=== PATIENT | male | born 1975 | race Caucasian/White ===

== ENCOUNTER 2017-05-09 08:30 | Day surgery (SDC) | payer OTHER ==
[~2017-05-09] VITALS: Ht 182.9 cm; Wt 80.0 kg
[~2017-05-09 08:30] MED LIST: ALBU3IS; ALBU90OI61 INH; ALPR.5 PO; Crutch1 EACH TOP; FLUT1DIS5 INH; OXYC10ER; OXYC5 PO; Percocet 5-3251 EACH PO; TRAM50 PO
== END 2017-05-09 12:39 | disposition home or self-care (01) ==
LOC: ORSCSDS 08:30
PROVIDERS: Podiatrist Foot & Ankle Surgery
PROC: 0JBQ0ZZ Excision of Right Foot Subcutaneous Tissue and Fascia, Open Approach (ICD-10-PCS; principal; 2017-05-09 09:45)
DX: T81.89XA Other complications of procedures, not elsewhere classified, initial encounter (principal); S82.871D Displaced pilon fracture of right tibia, subsequent encounter for closed fracture with routine healing; J45.909 Unspecified asthma, uncomplicated; Z79.899 Other long term (current) drug therapy; F17.210 Nicotine dependence, cigarettes, uncomplicated
CPT/HCPCS: J1100; J2405; J3010; J7120

== ENCOUNTER 2017-05-14 00:55 | Day surgery (SDC) | payer OTHER ==
[2017-05-14] MEDS ORDERED: OXYC5 (14:54)
== END 2017-05-14 15:26 | disposition home or self-care (01) ==
LOC: ATC 00:55
DX: S82.871D Displaced pilon fracture of right tibia, subsequent encounter for closed fracture with routine healing (principal); T81.89XD Other complications of procedures, not elsewhere classified, subsequent encounter
CPT/HCPCS: 99213

== ENCOUNTER 2017-05-16 00:58 | Day surgery (SDC) | payer OTHER ==
[~2017-05-16 00:58] MED LIST changes: +OXYC5
[2017-05-16] MEDS ORDERED: Bactrim 400-801 EACH PO (14:43)
== END 2017-05-16 15:05 | disposition home or self-care (01) ==
LOC: ATC 00:58
DX: S82.871D Displaced pilon fracture of right tibia, subsequent encounter for closed fracture with routine healing (principal); T81.89XD Other complications of procedures, not elsewhere classified, subsequent encounter
CPT/HCPCS: 99211

== ENCOUNTER 2017-05-23 00:39 | Day surgery (SDC) | payer OTHER ==
[~2017-05-23 00:39] MED LIST changes: +Bactrim 400-801 EACH PO
== END 2017-05-23 11:30 | disposition home or self-care (01) ==
LOC: ATC 00:39
DX: Z48.00 Encounter for change or removal of nonsurgical wound dressing (principal); S82.871D Displaced pilon fracture of right tibia, subsequent encounter for closed fracture with routine healing; T81.89XD Other complications of procedures, not elsewhere classified, subsequent encounter
CPT/HCPCS: 99212

== ENCOUNTER 2017-05-28 00:35 | Day surgery (SDC) | payer OTHER | END 2017-05-28 10:47 | disposition home or self-care (01) | LOC: ATC 00:35 | DX: T81.89XD Other complications of procedures, not elsewhere classified, subsequent encounter (principal); J45.909 Unspecified asthma, uncomplicated; S82.871D Displaced pilon fracture of right tibia, subsequent encounter for closed fracture with routine healing; F31.9 Bipolar disorder, unspecified; F17.210 Nicotine dependence, cigarettes, uncomplicated | CPT/HCPCS: 99211 ==

== ENCOUNTER 2017-05-30 00:48 | Day surgery (SDC) | payer OTHER | END 2017-05-30 10:26 | disposition home or self-care (01) | LOC: ATC 00:48 | DX: S82.871D Displaced pilon fracture of right tibia, subsequent encounter for closed fracture with routine healing (principal); T81.89XD Other complications of procedures, not elsewhere classified, subsequent encounter; J45.909 Unspecified asthma, uncomplicated; F41.9 Anxiety disorder, unspecified | CPT/HCPCS: 99211 ==

== ENCOUNTER 2017-06-06 01:06 | Day surgery (SDC) | payer OTHER | END 2017-06-06 15:56 | disposition home or self-care (01) | LOC: ATC 01:06 | DX: S82.871D Displaced pilon fracture of right tibia, subsequent encounter for closed fracture with routine healing (principal); T81.89XD Other complications of procedures, not elsewhere classified, subsequent encounter; J45.909 Unspecified asthma, uncomplicated; F17.210 Nicotine dependence, cigarettes, uncomplicated | CPT/HCPCS: 99211 ==

== ENCOUNTER 2017-06-06 16:33 | Emergency (ER) | payer OTHER ==
[~2017-06-06] VITALS: Ht 182.9 cm; Wt 81.7 kg
== END 2017-06-06 17:52 | disposition left against medical advice (07) ==
LOC: ER 16:33
DX: Z53.21 Procedure and treatment not carried out due to patient leaving prior to being seen by health care provider (principal)

== ENCOUNTER 2017-06-11 09:13 | Day surgery (SDC) | payer OTHER | END 2017-06-11 22:39 | disposition home or self-care (01) | LOC: WOUND 09:13 | DX: Z48.01 Encounter for change or removal of surgical wound dressing (principal); T81.89XD Other complications of procedures, not elsewhere classified, subsequent encounter; S82.871D Displaced pilon fracture of right tibia, subsequent encounter for closed fracture with routine healing; Z87.891 Personal history of nicotine dependence | CPT/HCPCS: G0463 ==

== ENCOUNTER 2017-06-13 00:09 | Day surgery (SDC) | payer OTHER | END 2017-06-13 23:10 | disposition home or self-care (01) | LOC: WOUND 00:09 | PROC: 2W1QX6Z Compression of Right Lower Leg using Pressure Dressing (ICD-10-PCS; principal; 2017-06-13) | DX: T81.89XD Other complications of procedures, not elsewhere classified, subsequent encounter (principal); S82.871D Displaced pilon fracture of right tibia, subsequent encounter for closed fracture with routine healing ==

== ENCOUNTER 2017-06-16 15:13 | Day surgery (SDC) | payer OTHER | END 2017-06-16 23:00 | disposition home or self-care (01) | LOC: WOUND 15:13 | DX: Z48.00 Encounter for change or removal of nonsurgical wound dressing (principal); T81.89XA Other complications of procedures, not elsewhere classified, initial encounter; S82.871D Displaced pilon fracture of right tibia, subsequent encounter for closed fracture with routine healing | CPT/HCPCS: G0463 ==

== ENCOUNTER 2017-06-20 10:08 | Day surgery (SDC) | payer OTHER | END 2017-06-20 23:00 | disposition home or self-care (01) | LOC: WOUND 10:08 | PROC: 2W1QX6Z Compression of Right Lower Leg using Pressure Dressing (ICD-10-PCS; principal; 2017-06-20) | DX: T81.89XA Other complications of procedures, not elsewhere classified, initial encounter (principal); S82.871D Displaced pilon fracture of right tibia, subsequent encounter for closed fracture with routine healing; Z87.891 Personal history of nicotine dependence | CPT/HCPCS: G0463 ==

== ENCOUNTER 2017-07-04 09:58 | Day surgery (SDC) | payer OTHER | END 2017-07-04 15:55 | disposition home or self-care (01) | LOC: WOUND 09:58 | PROC: 2W0QX6Z Change Pressure Dressing on Right Lower Leg (ICD-10-PCS; principal; 2017-07-04) | DX: Z48.01 Encounter for change or removal of surgical wound dressing (principal); T81.31XD Disruption of external operation (surgical) wound, not elsewhere classified, subsequent encounter; L97.312 Non-pressure chronic ulcer of right ankle with fat layer exposed; S82.871D Displaced pilon fracture of right tibia, subsequent encounter for closed fracture with routine healing; Z87.891 Personal history of nicotine dependence | CPT/HCPCS: G0463 ==

== ENCOUNTER 2017-07-09 01:40 | Day surgery (SDC) | payer OTHER | END 2017-07-09 23:06 | disposition home or self-care (01) | LOC: WOUND 01:40 | PROC: 2W0QX6Z Change Pressure Dressing on Right Lower Leg (ICD-10-PCS; principal; 2017-07-09) | DX: Z48.01 Encounter for change or removal of surgical wound dressing (principal); T81.31XD Disruption of external operation (surgical) wound, not elsewhere classified, subsequent encounter; L97.312 Non-pressure chronic ulcer of right ankle with fat layer exposed; Z87.891 Personal history of nicotine dependence | CPT/HCPCS: G0463 ==

== ENCOUNTER 2017-07-16 11:00 | Day surgery (SDC) | payer OTHER | END 2017-07-16 14:16 | disposition home or self-care (01) | LOC: WOUND 11:00 | PROC: 2W1QX6Z Compression of Right Lower Leg using Pressure Dressing (ICD-10-PCS; principal; 2017-07-16) | DX: T81.89XA Other complications of procedures, not elsewhere classified, initial encounter (principal); Z87.891 Personal history of nicotine dependence; S82.871A Displaced pilon fracture of right tibia, initial encounter for closed fracture ==

== ENCOUNTER 2018-10-12 17:55 | Emergency (ER) | payer OTHER ==
[~2018-10-12] VITALS: Ht 182.9 cm; Wt 88.5 kg
[~2018-10-12 17:55] MED LIST changes: +Vibramycin100 MG PO
== END 2018-10-12 19:24 | disposition home or self-care (01) ==
LOC: ER 17:55
DX: S61.412A Laceration without foreign body of left hand, initial encounter (principal); W26.8XXA Contact with other sharp object(s), not elsewhere classified, initial encounter; Z88.0 Allergy status to penicillin; Z91.048 Other nonmedicinal substance allergy status; Z79.899 Other long term (current) drug therapy; J45.909 Unspecified asthma, uncomplicated; F41.9 Anxiety disorder, unspecified; Z87.891 Personal history of nicotine dependence
CPT/HCPCS: 12002; 99282-25

== ENCOUNTER 2020-04-22 18:15 | Emergency (ER) | payer OTHER ==
[~2020-04-22] VITALS: Ht 182.9 cm; Wt 83.9 kg
[2020-04-22 19:40] LABS: BASOPHILS ABSOLUTE AUTO 0.07 K/mm3 (0.00-0.23); BASOPHILS PERCENT AUTO 1 % (0-2); EOSINOPHILS ABSOLUTE AUTO 0.45 K/mm3 (0.00-0.68); EOSINOPHILS PERCENT AUTO 6 % (0-6); Hematocrit 47.6 % (37.0-53.0); Hemoglobin 15.2 g/dL (13.5-17.5); IMMATURE GRAN ABSOLUTE AUTO 0.02 K/mm3 (0.00-0.10); IMMATURE GRAN PERCENT AUTO 0 % (0-1); LYMPHOCYTES ABSOLUTE AUTO 1.84 K/mm3 (0.84-5.20); LYMPHOCYTES PERCENT AUTO 25 % (21-46); MONOCYTES ABSOLUTE AUTO 0.38 K/mm3 (0.16-1.47); MONOCYTES PERCENT AUTO 5 % (4-13); Mean Corpuscular HGB 28.2 pg (26.0-34.0); Mean Corpuscular HGB Conc 31.9 g/dL (31.5-36.5); Mean Corpuscular Volume 88 fL (80-100); Mean Platelet Volume 9.8 fL (9.1-12.4); NEUTROPHILS ABSOLUTE AUTO 4.59 K/mm3 (1.96-9.15); NEUTROPHILS PERCENT AUTO 62 % (41-73); Platelet Count 343 K/mm3 (150-400); RDW Coefficient Variation 13.6 % (11.7-14.2); RDW Standard Deviation 44.6 fL (35.1-46.3); Red Blood Cell Count 5.39 M/mm3 (4.30-5.90); White Blood Cell Count 7.35 K/mm3 (4.00-11.30)
[2020-04-22 19:58] LABS: Alanine Aminotransfer (ALT/SGP 15 U/L (12-78); Alk Phos 84 U/L (50-136); Anion Gap 6 mmol/L (6-16); Aspartate Aminotrans (AST/SGOT 13 U/L (12-37); Bilirubin, Total 0.3 mg/dL (0.1-1.0); Blood Urea Nitrogen 16 mg/dL (8-24); CO2, Blood 25 mmol/L (21-32); Calcium, Blood 9.1 mg/dL (8.5-10.1); Chloride, Blood 109 mmol/L (98-108); Creatinine, Blood 0.89 mg/dL (0.60-1.20); Globulin, Blood 3.9 g/dL (2.2-4.0); Glomerular Filtration Rate >60 (60-); Glucose, Blood 103 mg/dL (70-99); Potassium, Blood 5.2 mmol/L (3.5-5.5); Sodium, Blood 140 mmol/L (136-145); Total Protein, Blood 7.9 g/dL (6.4-8.2)
[2020-04-22] MEDS ORDERED: Ventolin5 MG/1 ML INH (20:55)
[2020-04-22] MEDS ORDERED: PRED20 PO (20:55)
== END 2020-04-22 21:19 | disposition home or self-care (01) ==
LOC: ER 18:15
PROVIDERS: Physician Assistant
DX: J45.901 Unspecified asthma with (acute) exacerbation (principal); F17.200 Nicotine dependence, unspecified, uncomplicated; Z79.899 Other long term (current) drug therapy; Z88.0 Allergy status to penicillin; Z91.09 Other allergy status, other than to drugs and biological substances
CPT/HCPCS: 71045; 80053; 85025; 93005; 93010; 94640; 96374; 99285-25; A9270; J2930

== ENCOUNTER 2020-05-02 10:30 | Emergency (ER) | payer OTHER ==
[~2020-05-02] VITALS: Ht 182.9 cm; Wt 86.2 kg
[~2020-05-02 10:30] MED LIST changes: +PRED20 PO; +Ventolin5 MG/1 ML INH
[2020-05-02] MEDS ORDERED: ALBU2.5V5 NEB (13:15)
[2020-05-02] MEDS ORDERED: ALBU90OI INH (13:15)
[2020-05-02] MEDS ORDERED: METPRE4DP PO (13:15)
== END 2020-05-02 13:24 | disposition home or self-care (01) ==
LOC: ER 10:30
DX: J45.901 Unspecified asthma with (acute) exacerbation (principal); F17.210 Nicotine dependence, cigarettes, uncomplicated; Z79.899 Other long term (current) drug therapy; Z88.0 Allergy status to penicillin; Z79.52 Long term (current) use of systemic steroids
CPT/HCPCS: 71045; 93005; 93010; 94644; 99285-25

== ENCOUNTER 2021-01-02 20:35 | Emergency (ER) | payer OTHER ==
[~2021-01-02] VITALS: Ht 182.9 cm; Wt 83.9 kg
[~2021-01-02 20:35] MED LIST changes: +ALBU2.5V5 NEB; +ALBU90OI INH; +METPRE4DP PO
[2021-01-02] MEDS ORDERED: ALBU90OI INH (22:18)
== END 2021-01-02 22:38 | disposition home or self-care (01) ==
LOC: ER 20:35
DX: M25.571 Pain in right ankle and joints of right foot (principal); G89.29 Other chronic pain; J45.909 Unspecified asthma, uncomplicated; F41.9 Anxiety disorder, unspecified; Z88.0 Allergy status to penicillin; Z91.048 Other nonmedicinal substance allergy status; Z79.52 Long term (current) use of systemic steroids; Z79.899 Other long term (current) drug therapy
CPT/HCPCS: 73610; 99282-25

== ENCOUNTER 2021-02-24 01:02 | Emergency (ER) | payer OTHER ==
[~2021-02-24] VITALS: Ht 182.9 cm; Wt 90.7 kg
[2021-02-24] MEDS ORDERED: PRED20 PO (03:47)
== END 2021-02-24 03:56 | disposition home or self-care (01) ==
LOC: ER 01:02
DX: J45.901 Unspecified asthma with (acute) exacerbation (principal); Z88.0 Allergy status to penicillin
CPT/HCPCS: 94644; 94645; 99285-25; J3475

== ENCOUNTER 2021-04-01 07:56 | Emergency (ER) | payer OTHER ==
[~2021-04-01] VITALS: Ht 182.9 cm; Wt 83.9 kg
[2021-04-01] MEDS ORDERED: METPRE4DP PO (10:56)
== END 2021-04-01 11:15 | disposition home or self-care (01) ==
LOC: ER 07:56
DX: J45.901 Unspecified asthma with (acute) exacerbation (principal); R06.03 Acute respiratory distress; Z88.0 Allergy status to penicillin
CPT/HCPCS: 71045; 96374; 96375; 99285-25; J2930; J3475

== ENCOUNTER 2021-08-03 04:38 | Emergency (ER) | payer OTHER ==
[~2021-08-03] VITALS: Ht 182.9 cm; Wt 83.9 kg
[2021-08-03] MEDS ORDERED: DELTASONE20 MG PO (06:36)
== END 2021-08-03 07:28 | disposition home or self-care (01) ==
LOC: ER 04:38
DX: J45.901 Unspecified asthma with (acute) exacerbation (principal); Z88.0 Allergy status to penicillin; Z88.8 Allergy status to other drugs, medicaments and biological substances; Z79.899 Other long term (current) drug therapy; Z79.52 Long term (current) use of systemic steroids; F17.200 Nicotine dependence, unspecified, uncomplicated
CPT/HCPCS: 36415; 94644; 94645; 94664; 96365; 96366; 96375; 99285-25; J2930; J3475

== ENCOUNTER 2021-09-18 02:35 | Emergency (ER) | payer OTHER ==
[~2021-09-18] VITALS: Ht 182.9 cm; Wt 86.2 kg
[~2021-09-18 02:35] MED LIST changes: +DELTASONE20 MG PO
[2021-09-18 04:38] LABS: Influenza A, PCR NEGATIVE (NEGATIVE); Influenza B, PCR NEGATIVE (NEGATIVE); Resp Syncytial Virus, PCR NEGATIVE (NEGATIVE); SARS-Cov-2 (COVID-19) PCR, MMC NEGATIVE (NEGATIVE)
[2021-09-18] MEDS ORDERED: Prednisone20 MG PO (04:43)
[2021-09-18] MEDS ORDERED: ALBU90OI INH (04:43)
[2021-09-18] MEDS ORDERED: ALBU2.5V5 INH (04:48)
== END 2021-09-18 05:35 | disposition home or self-care (01) ==
LOC: ER 02:35
PROVIDERS: Emergency Medicine
DX: J45.901 Unspecified asthma with (acute) exacerbation (principal); F17.200 Nicotine dependence, unspecified, uncomplicated; Z20.822 Contact with and (suspected) exposure to COVID-19; Z79.899 Other long term (current) drug therapy; Z79.52 Long term (current) use of systemic steroids; Z88.0 Allergy status to penicillin; Z91.09 Other allergy status, other than to drugs and biological substances
CPT/HCPCS: 0241U; 71045; 94644; 94664; J3475

== ENCOUNTER 2022-02-27 19:26 | Observation (INO) | payer OTHER ==
[~2022-02-27] VITALS: Ht 180.3 cm; Wt 93.4 kg
[~2022-02-27 19:26] MED LIST changes: +ALBU2.5V5 INH; +Prednisone20 MG PO
[2022-02-27 19:46] LABS: Hematocrit 47.4 % (37.0-53.0); Hemoglobin 15.5 g/dL (13.5-17.5); Mean Corpuscular HGB 29.5 pg (26.0-34.0); Mean Corpuscular HGB Conc 32.7 g/dL (31.5-36.5); Mean Corpuscular Volume 90 fL (80-100); Mean Platelet Volume 9.8 fL (9.1-12.4); Platelet Count 419 K/mm3 (150-400); RDW Coefficient Variation 14.6 % (11.7-14.2); RDW Standard Deviation 48.8 fL (35.1-46.3); Red Blood Cell Count 5.26 M/mm3 (4.30-5.90); White Blood Cell Count 13.95 K/mm3 (4.00-11.30)
[2022-02-27 19:47] LABS: PCO2 Arterial 72.4 mmHg (35-45); PO2 Arterial 282 mmHg (80-100); pH Blood Arterial 7.16 (7.35-7.45)
[2022-02-27 20:03] LABS: Albumin, Blood 4.3 g/dL (3.4-5.0); Albumin/Globulin Ratio 1.2 (0.8-1.8); Bilirubin, Total 0.3 mg/dL (0.1-1.0); Bun/Creatinine Ratio 16.8 (12.0-20.0); Creatinine, Blood 1.01 mg/dL (0.60-1.20); Globulin, Blood 3.6 g/dL (2.2-4.0); Potassium, Blood 4.7 mmol/L (3.5-5.5); Total Protein, Blood 7.9 g/dL (6.4-8.2)
[2022-02-27 20:06] LABS: BASOPHILS ABSOLUTE MAN 0.13 K/mm3 (0.00-0.23); BASOPHILS PERCENT MAN 1 % (0-2); EOSINOPHILS ABSOLUTE MAN 0.83 K/mm3 (0.00-0.68); EOSINOPHILS PERCENT MAN 6 % (0-6); LYMPHOCYTES ABSOLUTE MAN 6.13 K/mm3 (0.84-5.20); LYMPHOCYTES PERCENT MAN 44 % (21-46); MONOCYTES ABSOLUTE MAN 1.11 K/mm3 (0.16-1.47); MONOCYTES PERCENT MAN 8 % (4-13); NEUTROPHILS ABSOLUTE MAN 5.71 K/mm3 (1.96-9.15); SEG NEUTROPHILS PERCENT MAN 41 % (41-73); TOTAL CELLS COUNTED 100
[2022-02-27 22:36] LABS: Bicarbonate Venous 23.8 mmol/L (24.0-30.0); PCO2 Venous 42.2 mmHg (38-42); pH Blood Venous 7.38 (7.34-7.37)
[2022-02-27 22:37] LABS: Base Excess Venous -0.5 mmol/L
[2022-02-28 04:16] LABS: BASOPHILS ABSOLUTE AUTO 0.01 K/mm3 (0.00-0.23); BASOPHILS PERCENT AUTO 0 % (0-2); EOSINOPHILS ABSOLUTE AUTO 0.02 K/mm3 (0.00-0.68); EOSINOPHILS PERCENT AUTO 0 % (0-6); Hematocrit 45.1 % (37.0-53.0); Hemoglobin 14.7 g/dL (13.5-17.5); IMMATURE GRAN ABSOLUTE AUTO 0.06 K/mm3 (0.00-0.10); IMMATURE GRAN PERCENT AUTO 1 % (0-1); LYMPHOCYTES ABSOLUTE AUTO 0.61 K/mm3 (0.84-5.20); LYMPHOCYTES PERCENT AUTO 5 % (21-46); MONOCYTES ABSOLUTE AUTO 0.04 K/mm3 (0.16-1.47); MONOCYTES PERCENT AUTO 0 % (4-13); Mean Corpuscular HGB 28.9 pg (26.0-34.0); Mean Corpuscular HGB Conc 32.6 g/dL (31.5-36.5); Mean Corpuscular Volume 89 fL (80-100); Mean Platelet Volume 9.5 fL (9.1-12.4); NEUTROPHILS ABSOLUTE AUTO 11.58 K/mm3 (1.96-9.15); NEUTROPHILS PERCENT AUTO 94 % (41-73); Platelet Count 343 K/mm3 (150-400); RDW Coefficient Variation 14.4 % (11.7-14.2); RDW Standard Deviation 46.6 fL (35.1-46.3); Red Blood Cell Count 5.09 M/mm3 (4.30-5.90); White Blood Cell Count 12.32 K/mm3 (4.00-11.30)
--- NOTE | 2022-02-28 04:53 | NUR ---
ARRIVAL TO [facility]/SHIFT SUMMARY PT ARRIVED TO PCU AT APPROXIMATELY 2130 ON 2L VIA NC WITH BIPAP ON STANDBY, PT ABLE TO STAND AND TRANSFER SELF IND [facility] BED. PT DENIES SOB, RR STABLE, SpO2> 92% 2L VIA NC. PT A&Ox4, CALLS AND COMMUNICATES NEEDS APPROPRIATELY. PT's ONLY HAS HIVES ON INNER ELBOWS, ORDERS TO ADMINISTER BENADRYL AND PEPCID, HIVES IMPROVED. AT APPROXIMATELY 0400 PT SUCCESSFULLY TITRATE DOWN TO RA WITH SpO2> 92% AND PT DENIES SOB. VSS, BP STABLE, SINUS 70's, DENIES CP/PRESSURE. PT ABLE TO REST COMFORTABLY, NO OTHER EVENTS THIS SHIFT. WILL REPORT TO DAY SHIFT RN.
--- NOTE | 2022-02-28 06:31 | NUR ---
THIS RN ADMITTING ANOTHER PT WHEN MARY VAIL FOUND PT RIPPING TELE AND IV's OUT, DEMANDING TO LEAVE. PT IS A&Ox4, VSS, SpO2> 92% RA. MARY VAIL CALLED PHYSICIAN TO UPDATE. PT PROVIDED WITH EDUCATION REGAURDING LEAVING AMA, AMA FORM SIGNED. ALL IV's REMOVED PRIOR TO PT LEAVING ROOM. ALL PT BELONGINGS WITH PT.
== END 2022-02-28 06:30 | disposition left against medical advice (07) ==
LOC: ER 19:26 → PCU 20:37 → ER 20:37 → PCU 21:40
PROVIDERS: Emergency Medicine; Family Medicine; ADMIT Internal Medicine
DX: T78.3XXA Angioneurotic edema, initial encounter (principal); J45.40 Moderate persistent asthma, uncomplicated; F17.210 Nicotine dependence, cigarettes, uncomplicated; Z88.0 Allergy status to penicillin
CPT/HCPCS: 36415; 36600; 71045; 80053; 82803; 85025; 90686; 93005; 93010; 94640; 94644; 94660; 94664; 94762; 96374; 96375; 99285-25; G0008; J1200; J2405; J2930; J3475

== ENCOUNTER 2022-04-25 21:21 | Emergency (ER) | payer OTHER ==
[~2022-04-25] VITALS: Ht 180.3 cm; Wt 91.6 kg
[2022-04-26 02:32] LABS: Influenza A, PCR NEGATIVE (NEGATIVE); Influenza B, PCR NEGATIVE (NEGATIVE); Resp Syncytial Virus, PCR NEGATIVE (NEGATIVE); SARS-Cov-2 (COVID-19) PCR, MMC NEGATIVE (NEGATIVE)
[2022-04-26] MEDS ORDERED: PRED20 PO (02:39)
== END 2022-04-26 02:57 | disposition home or self-care (01) ==
LOC: ER 21:21
PROVIDERS: Student in an Organized Health Care Education/Training Program
DX: J45.51 Severe persistent asthma with (acute) exacerbation (principal); J06.9 Acute upper respiratory infection, unspecified; Z91.013 Allergy to seafood; Z88.0 Allergy status to penicillin; Z91.09 Other allergy status, other than to drugs and biological substances; Z87.891 Personal history of nicotine dependence; Z20.822 Contact with and (suspected) exposure to COVID-19
CPT/HCPCS: 0241U; 71046; 94640; 94664; A9270; J7512

== ENCOUNTER 2022-05-29 12:41 | Day surgery (SDC) | payer OTHER ==
[~2022-05-29] VITALS: Ht 182.9 cm; Wt 93.0 kg
[2022-05-29] MEDS ORDERED: TRELEGY ELLIPT1 EAC1 IH (13:34)
[2022-05-29] MEDS ORDERED: MONT10T (13:37)
[2022-05-29] MEDS ORDERED: OMEP20ER PO (13:37)
[2022-05-29] MEDS ORDERED: DESCOVY 120-151 EACH PO (13:39)
--- NOTE | 2022-05-29 16:02 | NUR ---
05/29/22 1602 Tamara Cochran BULLET GIVEN TO PATIENT PER PATIENT REQUEST AFTER STERILE PROCESSCING.
== END 2022-05-29 15:59 | disposition home or self-care (01) ==
LOC: ORSCSDS 12:41
PROVIDERS: Orthopaedic Surgery
PROC: 0KCC0ZZ Extirpation of Matter from Right Hand Muscle, Open Approach (ICD-10-PCS; principal; 2022-05-29 14:45)
PROC: 01N54ZZ Release Median Nerve, Percutaneous Endoscopic Approach (ICD-10-PCS; principal; 2022-05-29 14:45)
DX: G56.01 Carpal tunnel syndrome, right upper limb (principal); S60.551A Superficial foreign body of right hand, initial encounter; K21.9 Gastro-esophageal reflux disease without esophagitis; F41.9 Anxiety disorder, unspecified; Z87.891 Personal history of nicotine dependence; Z79.899 Other long term (current) drug therapy
CPT/HCPCS: J2250; J2370; J3010; J7120

== ENCOUNTER 2024-04-09 07:52 | Inpatient (IN) | payer OTHER ==
[~2024-04-09] VITALS: Ht 182.9 cm; Wt 78.4 kg
[~2024-04-09 07:52] MED LIST changes: +DESCOVY 120-151 EACH PO; +MONT10T; +OMEP20ER PO; +TRELEGY ELLIPT1 EAC1 IH
[2024-04-09] MEDS ORDERED: Magnesium Sulf 2 GM/Water 50ML 50 ML IV ONE (08:05)
[2024-04-09] MEDS ORDERED: Ipratropium Bromide INH 0.02% 0.5 mg/2.5ML Vial INH SCH ×2 (08:05→10:20)
[2024-04-09] MEDS ORDERED: Albuterol 2.5 MG/3 ML VIAL INH SCH ×2 (08:05→10:15)
[2024-04-09] MEDS ORDERED: MethylPREDNISolone Sod Succ 125 MG Vial IV ONE (08:05)
[2024-04-09 08:08] LABS: Base Excess Venous -0.6 mmol/L; Bicarbonate Venous 22.7 mmol/L (24.0-30.0); PCO2 Venous 50.5 mmHg (38-42); pH Blood Venous 7.31 (7.34-7.37)
[2024-04-09 08:11] LABS: BASOPHILS ABSOLUTE AUTO 0.08 K/mm3 (0.00-0.23); BASOPHILS PERCENT AUTO 1 % (0-2); EOSINOPHILS ABSOLUTE AUTO 0.08 K/mm3 (0.00-0.68); EOSINOPHILS PERCENT AUTO 1 % (0-6); Hematocrit 44.9 % (37.0-53.0); Hemoglobin 14.9 g/dL (13.5-17.5); IMMATURE GRAN ABSOLUTE AUTO 0.02 K/mm3 (0.00-0.10); IMMATURE GRAN PERCENT AUTO 0 % (0-1); LYMPHOCYTES ABSOLUTE AUTO 1.92 K/mm3 (0.84-5.20); LYMPHOCYTES PERCENT AUTO 19 % (21-46); MONOCYTES ABSOLUTE AUTO 0.71 K/mm3 (0.16-1.47); MONOCYTES PERCENT AUTO 7 % (4-13); Mean Corpuscular HGB 29.5 pg (26.0-34.0); Mean Corpuscular HGB Conc 33.2 g/dL (31.5-36.5); Mean Corpuscular Volume 89 fL (80-100); Mean Platelet Volume 9.2 fL (9.1-12.4); NEUTROPHILS ABSOLUTE AUTO 7.52 K/mm3 (1.96-9.15); NEUTROPHILS PERCENT AUTO 73 % (41-73); Platelet Count 359 K/mm3 (150-400); RDW Standard Deviation 45.5 fL (35.1-46.3); Red Blood Cell Count 5.05 M/mm3 (4.30-5.90); White Blood Cell Count 10.33 K/mm3 (4.00-11.30)
[2024-04-09 08:32] LABS: Albumin, Blood 3.8 g/dL (3.4-5.0); Bilirubin, Total 0.3 mg/dL (0.1-1.0); Bun/Creatinine Ratio 17.6 (12.0-20.0); Calcium, Blood 9.1 mg/dL (8.5-10.1); Creatinine, Blood 1.08 mg/dL (0.60-1.20); Potassium, Blood 4.2 mmol/L (3.5-5.5); Total Protein, Blood 7.8 g/dL (6.4-8.2)
[2024-04-09] MEDS ORDERED: FLU VACC TS2024-25(6MOS UP)/PF 45 MCG/0.5 ML SYRINGE IM PRN (11:55)
[2024-04-09] MEDS ORDERED: Guaifenesin/Dextromethorphan Syrup 5 ML UDC PO PRN (11:55)
[2024-04-09] MEDS ORDERED: MethylPREDNISolone Sod Succ 125 MG Vial IV SCH (12:00)
[2024-04-09 13:44] LABS: Influenza A, PCR NEGATIVE (NEGATIVE); Influenza B, PCR NEGATIVE (NEGATIVE); Resp Syncytial Virus, PCR NEGATIVE (NEGATIVE); SARS-Cov-2 (COVID-19) PCR, MMC NEGATIVE (NEGATIVE)
[2024-04-09] MEDS ORDERED: BUPROPION XL150 M1 PO (15:14)
[2024-04-09] MEDS ORDERED: BUPR150ER PO (15:15)
[2024-04-09] MEDS ORDERED: DIVA500EC PO (15:17)
[2024-04-09] MEDS ORDERED: EMTRICITABINE-1 EAC5 PO (15:18)
[2024-04-09] MEDS ORDERED: DELTASONE20 MG PO (15:22)
[2024-04-09] MEDS ORDERED: SILD50TA PO (15:23)
[2024-04-09] MEDS ORDERED: TRAZ50 PO (15:24)
[2024-04-09] MEDS ORDERED: DEPAKOTE ER500 M2 PO (15:58)
[2024-04-09] MEDS ORDERED: DIVALPROEX SOD250 M2 PO (15:58)
[2024-04-09] MEDS ORDERED: Ipratropium/Albuterol SulF 2.5-0.5MG/3 ML Amp INH SCH (16:00)
[2024-04-09] MEDS ORDERED: Albuterol 2.5 MG/3 ML VIAL INH PRN (16:00)
[2024-04-09] MEDS ORDERED: Omeprazole 20 MG CapCR PO SCH (16:30)
[2024-04-09 19:47] VITALS: BP 154/88
[2024-04-09] MEDS ORDERED: Divalproex Sodium 250 MG TABLET.DR PO SCH (21:00)
[2024-04-09] MEDS ORDERED: TraZODone HCl 50 MG Tab PO SCH (21:00)
[2024-04-09] MEDS ORDERED: Divalproex Sodium 500 MG TABCR PO SCH (21:00)
[2024-04-10 03:42] VITALS: BP 114/82
[2024-04-10 04:57] LABS: BASOPHILS PERCENT AUTO 0 % (0-2); EOSINOPHILS PERCENT AUTO 0 % (0-6); Hematocrit 42.2 % (37.0-53.0); IMMATURE GRAN ABSOLUTE AUTO 0.02 K/mm3 (0.00-0.10); IMMATURE GRAN PERCENT AUTO 0 % (0-1); LYMPHOCYTES ABSOLUTE AUTO 0.82 K/mm3 (0.84-5.20); LYMPHOCYTES PERCENT AUTO 8 % (21-46); MONOCYTES ABSOLUTE AUTO 0.15 K/mm3 (0.16-1.47); MONOCYTES PERCENT AUTO 2 % (4-13); Mean Corpuscular HGB 29.4 pg (26.0-34.0); Mean Corpuscular HGB Conc 33.2 g/dL (31.5-36.5); Mean Corpuscular Volume 89 fL (80-100); Mean Platelet Volume 9.9 fL (9.1-12.4); NEUTROPHILS ABSOLUTE AUTO 9.04 K/mm3 (1.96-9.15); NEUTROPHILS PERCENT AUTO 90 % (41-73); Platelet Count 345 K/mm3 (150-400); RDW Standard Deviation 45.4 fL (35.1-46.3); Red Blood Cell Count 4.77 M/mm3 (4.30-5.90); White Blood Cell Count 10.03 K/mm3 (4.00-11.30)
[2024-04-10 05:26] LABS: Bun/Creatinine Ratio 14.9 (12.0-20.0); Calcium, Blood 9.2 mg/dL (8.5-10.1); Creatinine, Blood 0.94 mg/dL (0.60-1.20); Potassium, Blood 5.2 mmol/L (3.5-5.5)
[2024-04-10 07:46] VITALS: BP 119/77
[2024-04-10] MEDS ORDERED: Emtricitabine/Tenofovir (TDF) 200-300mg 1 TAB PO SCH (09:00)
[2024-04-10] MEDS ORDERED: TRUVADA PO SCH (09:00)
[2024-04-10] MEDS ORDERED: Enoxaparin 40 MG/0.4 ML SYR SC SCH (09:00)
[2024-04-10] MEDS ORDERED: Montelukast Sodium 10 MG Tab PO SCH (09:00)
[2024-04-10] MEDS ORDERED: buPROPion HCL 150 MG TAB.SR.12H PO SCH (09:00)
[2024-04-10 11:02] LABS: Base Excess Venous 3.7 mmol/L; PCO2 Venous 44.9 mmHg (38-42); pH Blood Venous 7.41 (7.34-7.37)
[2024-04-10 15:10] VITALS: BP 125/77
[2024-04-10 19:21] VITALS: BP 132/73
[2024-04-11 03:11] VITALS: BP 119/76
[2024-04-11 07:15] VITALS: BP 110/76
[2024-04-11 15:44] VITALS: BP 127/69
[2024-04-11 19:18] VITALS: BP 127/77
[2024-04-12 09:13] VITALS: BP 133/84
== END 2024-04-12 16:30 | disposition home or self-care (01) | DRG 189 ==
LOC: ER 07:52 → MEDS 11:51
PROVIDERS: Student in an Organized Health Care Education/Training Program; ADMIT Family Medicine
DX: J96.21 Acute and chronic respiratory failure with hypoxia (principal); J44.1 Chronic obstructive pulmonary disease with (acute) exacerbation; J45.901 Unspecified asthma with (acute) exacerbation; F32.1 Major depressive disorder, single episode, moderate; J96.22 Acute and chronic respiratory failure with hypercapnia; Z66 Do not resuscitate; F41.9 Anxiety disorder, unspecified; F43.12 Post-traumatic stress disorder, chronic; Z87.891 Personal history of nicotine dependence; Z88.0 Allergy status to penicillin; Z91.013 Allergy to seafood; Z79.899 Other long term (current) drug therapy; K21.9 Gastro-esophageal reflux disease without esophagitis; F20.9 Schizophrenia, unspecified; F51.04 Psychophysiologic insomnia; N52.9 Male erectile dysfunction, unspecified
CPT/HCPCS: 0241U; 36415; 71045; 80048; 80053; 82803; 84484; 85025; 94640; 94644; 94645; 94664; 94760; 96365; 96375; 99285-25; A9270; J2919; J3475

== ENCOUNTER 2025-04-12 19:42 | Emergency (ER) | payer OTHER ==
[~2025-04-12] VITALS: Ht 180.3 cm; Wt 83.9 kg
[~2025-04-12 19:42] MED LIST changes: +BUPR150ER PO; +BUPROPION XL150 M1 PO; +DEPAKOTE ER500 M2 PO; +DIVA500EC PO; +DIVALPROEX SOD250 M2 PO; +EMTRICITABINE-1 EAC5 PO; +SILD50TA PO; +TRAZ50 PO
[2025-04-12] MEDS ORDERED: Albuterol 2.5 MG/3 ML VIAL INH SCH (19:55)
[2025-04-12] MEDS ORDERED: Magnesium Sulf 2 GM/Water 50ML 50 ML IV ONE (19:55)
[2025-04-12 20:11] LABS: pH Blood Venous 7.38 (7.34-7.37)
[2025-04-12 20:12] LABS: BASOPHILS ABSOLUTE AUTO 0.10 K/mm3 (0.00-0.23); BASOPHILS PERCENT AUTO 1 % (0-2); EOSINOPHILS ABSOLUTE AUTO 1.20 K/mm3 (0.00-0.68); EOSINOPHILS PERCENT AUTO 13 % (0-6); Hematocrit 42.7 % (37.0-53.0); Hemoglobin 14.2 g/dL (13.5-17.5); IMMATURE GRAN ABSOLUTE AUTO 0.03 K/mm3 (0.00-0.10); IMMATURE GRAN PERCENT AUTO 0 % (0-1); LYMPHOCYTES ABSOLUTE AUTO 3.66 K/mm3 (0.84-5.20); LYMPHOCYTES PERCENT AUTO 40 % (21-46); MONOCYTES ABSOLUTE AUTO 0.67 K/mm3 (0.16-1.47); MONOCYTES PERCENT AUTO 7 % (4-13); Mean Corpuscular HGB Conc 33.3 g/dL (31.5-36.5); Mean Corpuscular Volume 91 fL (80-100); NEUTROPHILS ABSOLUTE AUTO 3.39 K/mm3 (1.96-9.15); NEUTROPHILS PERCENT AUTO 38 % (41-73); NRBC ABSOLUTE 0.00 K/mm3 (0.00-0.02); NRBC Auto 0.0 /100 WBC (0.0-0.2); Platelet Count 298 K/mm3 (150-400); RDW Coefficient Variation 14.6 % (11.7-14.2); RDW Standard Deviation 48.7 fL (35.1-46.3)
[2025-04-12 20:31] LABS: Alanine Aminotransfer (ALT/SGP 22.0 U/L (12-78); Albumin, Blood 3.8 g/dL (3.4-5.0); Albumin/Globulin Ratio 1.1 (0.8-1.8); Anion Gap 8.0 mmol/L (3-11); Aspartate Aminotrans (AST/SGOT 18.0 U/L (12-37); Bilirubin, Total 0.2 mg/dL (0.1-1.0); Blood Urea Nitrogen 13.0 mg/dL (8-24); CO2, Blood 28.0 mmol/L (21-32); Calcium, Blood 9.0 mg/dL (8.5-10.1); Chloride, Blood 109.0 mmol/L (98-108); Creatinine, Blood 1.01 mg/dL (0.60-1.20); Globulin, Blood 3.6 g/dL (2.2-4.0); Glucose, Blood 90.0 mg/dL (70-99); Potassium, Blood 5.1 mmol/L (3.5-5.5); Sodium, Blood 140.0 mmol/L (136-145); Total Protein, Blood 7.4 g/dL (6.4-8.2)
[2025-04-12 20:36] LABS: CORONAVIRUS COVID-19 AG Negative (NEGATIVE)
[2025-04-12] MEDS ORDERED: PRED20 PO (22:13)
[2025-04-12] MEDS ORDERED: AZIT250 PO (22:13)
[2025-04-12 22:24] VITALS: BP 145/91
== END 2025-04-12 22:26 | disposition home or self-care (01) ==
LOC: ER 19:42
PROVIDERS: Student in an Organized Health Care Education/Training Program
DX: J44.1 Chronic obstructive pulmonary disease with (acute) exacerbation (principal); Z87.891 Personal history of nicotine dependence; Z79.51 Long term (current) use of inhaled steroids; Z79.52 Long term (current) use of systemic steroids; Z88.0 Allergy status to penicillin; Z91.018 Allergy to other foods
CPT/HCPCS: 36415; 71046; 80053; 82803; 85025; 87428-QW; 93005; 93010; 96365; 96375; 99285-25; J2919; J3475